=== PATIENT | female | born 1995 | race Caucasian/White ===

== ENCOUNTER 2023-03-14 15:37 | Emergency (ER) | payer OTHER, SELFPAY ==
[2023-03-14 15:45] VITALS: BP 125/84; PULSE 60; RESP 16; TEMP 36.8; O2SAT 100; BMI 23.6
--- NOTE | 2023-03-14 16:33 | ED_ITS ---
HPI - Abdominal Pain General Chief Complaint: Abdominal Pain Stated Complaint: recent DX of colon cancer, having pain Time Seen by Provider: 03/14/23 16:11 History of Present Illness HPI narrative: 27-year-old female with recently diagnosed rectal cancer, unknown stage presents for evaluation of lower abdominal pain and rectal pain. Patient states that she had a CT scan and laboratory work done 3 days ago for staging, she has a follow up appointment later this week with a surgeon. She is here today because she continues to have pain and pressure with defecation and she is not certain what to do for her symptoms anymore. She is been taking MiraLax but is still having significant pain with bowel movements. She is been taking Tylenol for pain with minimal relief. Pain is unchanged from prior, this is the same pain she was having when she had her CT scan. Patient is also here today because she is having really bad restless legs. She states he uses it only at night, however now it is constant and causing her significant distress. Related Data Previous Rx's Medication Instructions Recorded oxycodone 5 mg capsule 5 mg PO Q8H PRN pain #20 caps 03/14/23 ropinirole 0.25 mg tablet 0.25 mg PO BEDTIME #30 tabs 03/14/23 Allergies Allergy/AdvReac Type Severity Reaction Status Date / Time No Known Drug Allergies Allergy Verified 03/14/23 16:42 Review of Systems Review of Systems Narrative: CONSTITUTIONAL- Denies: fever, chills, fatigue HEENT- Denies: sore throat, nosebleed, vision changes RESPIRATORY- Denies: shortness of breath, cough, wheezing CARDIAC- Denies: chest pain, edema, orthopnea GI-reports: Lower abdominal pain, rectal pain, constipation Denies: nausea, vo miting, diarrhea - Denies: frequency, dysuria, hematuria, flank pain MSK- Denies: extremity pain, extremity swelling, joint pain, joint swelling SKIN- Denies: rash, itching, burn, swelling NEUROLOGICAL- Denies: headache, numbness, weakness, dizziness PSYCHIATRIC- Denies: anxiety, depression, suicidal ideation, homicidal ideation Exam Initial Vital Signs Initial Vital Signs: Vital Signs Temperature 98.3 F 03/14/23 15:45 Pulse Rate 60 03/14/23 15:45 Respiratory Rate 16 03/14/23 15:45 Blood Pressure 125/84 03/14/23 15:45 Pulse Oximetry 100 03/14/23 15:45 Oxygen Delivery Method Room Air 03/14/23 15:45 Const: Well-nourished, Well-developed, appears stated age Eyes: PERRL, EOMI, conjunctiva normal ENT: Atraumatic, dentition normal, mucous membranes moist Cardiac: regular rate, regular rhythm RESP: unlabored, clear bilaterally, no wheezing GI: Atraumatic, soft, nontender, nondistended, no rebound, no guarding Rectal: Web Operations Specialist present, nonthrombosed hemorrhoids present, unable to perform digital inspection of rectum due to pain and discomfort MSK: Atraumatic, full range of motion, pulses equal Skin: Warm, Dry, intact, no rashes Neuro: AO x3, CN II-XII grossly intact, moves all extremities Psych: affect normal, mood normal, not suicidal, not homicidal Course Course Course Narrative: Nontoxic appearing patient with abdominal pain and rectal pain with recent diagnosis of rectal cancer, uncertain stage. Reviewed recent labs and imaging, patient has rective lymph nodes and inflammatory changes in the colon consistent with cancer. Patient mostly expresses frustration that she has continued pain despite following recommendations for increased stool softeners and fluid intake. Patient declines additional labs and imaging at this time. Patient given pain medications and IV fluids. We will discharge on pain medications and very small dose of ropinirole for restless legs. Patient advised of the potentially constipating nature of opiates and recommended increasing MiraLax doses and adding senna with goal of at least 1 soft bowel movement daily. Patient is in the process of getting set up with an oncologist but does have scheduled follow up with the surgeon for planning her cancer treatment. ED return precautions discussed at bedside. Patient expressed understanding of the plan and is in agreement at this time. All questions answered at the time of discharge. Orders Ordered: Discontinued Medications Sodium Chloride (Normal Saline 0.9%) 500 mls @ 1,000 mls/hr IV BOLUS ONE Stop: 03/14/23 16:57 Last Infusion: 03/14/23 17:21 Dose: 0 mls/hr Documented By: Admin: 03/14/23 16:44 Dose: 1,000 mls/hr Documented By: OMI Sodium Chloride (Normal Saline 0.9%) 500 mls @ 1,000 mls/hr IV BOLUS ONE Stop: 03/14/23 17:30 Last Admin: 03/14/23 17:24 Dose: Not Given Documented By: SHIRAZ Ketorolac Tromethamine (Ketorolac 30 Mg/Ml Vial) 15 mg IV NOW ONE Stop: 03/14/23 16:29 Last Admin: 03/14/23 16:42 Dose: 15 mg Documented By: SB Morphine Sulfate (Morphine 4 Mg/Ml Inj) 4 mg IV NOW ONE Stop: 03/14/23 16:30 Last Admin: 03/14/23 16:42 Dose: 4 mg Documented By: SB Vital Signs Vital signs: Vital Signs - 8 hr 03/14/23 15:45 Temperature 98.3 F Pulse Rate 60 Respiratory Rate 16 Blood Pressure 125/84 Pulse Oximetry 100 Oxygen Delivery Method Room Air Discharge Plan Departure Patient Disposition: Home Clinical Impression: Anal or rectal pain, Constipation Instructions: Constipation, Anal Cancer Activity Restrictions/Additional Instructions: DRINK LOTS OF FLUIDS. YOU CAN INCREASE YOUR MIRALAX - GOAL IS ONE SOFT STOOL PER DAY. SENNA IS ANOTHER OVER THE COUNTER MEDICATION YOU CAN TAKE FOR CONSTIPATION. Prescriptions: New oxycodone 5 mg capsule 5 mg PO Q8H PRN (Reason: pain) Qty: 20 0RF ropinirole 0.25 mg tablet 0.25 mg PO BEDTIME Qty: 30 0RF Rx Instructions: administer 1-3 hours before bedtime. May increase dose by 0.25mg every 3 days until reduction of symptoms. Maximum dose 2mg Referrals: Miscellaneous,[facility] [Primary Care Provider] - Lorenza Walton MD [Physician] - Stand Alone Forms: Patient Portal/API
[2023-03-14] MEDS: MORPHINE 4 MG/ML INJ IV (16:42)
[2023-03-14] MEDS: KETOROLAC 30 MG/ML VIAL 15 MG IV (16:42)
[2023-03-14] MEDS: SODIUM CHLORIDE 0.9% 500 ML 1000 ML IV (16:44)
[2023-03-14 17:25] VITALS: BP 118/58; PULSE 50; RESP 16; O2SAT 100
== END 2023-03-14 17:31 | disposition home or self-care (01) ==
PROVIDERS: Emergency Provider Emergency Medicine
DX: K62.89 Other specified diseases of anus and rectum (principal); K59.00 Constipation, unspecified
CPT/HCPCS: 96361; 96374; 96375; 99283; 99284; J1885; J2270

== ENCOUNTER → 2023-11-05 09:41 | Outpatient (CLI) | payer OTHER, SELFPAY ==
--- NOTE | 2023-11-05 09:45 | DI.RAD.S_ITS ---
PROCEDURE: XR KNEE LT 3V INDICATIONS: Pain in left knee TECHNIQUE: 3 views of the knee were acquired. COMPARISON: None. FINDINGS: Bones: No fractures or dislocations. No suspicious bony lesions. Soft tissues: No joint effusion. No suspicious soft tissue calcifications. IMPRESSION: No acute osseous abnormality. If pain persists with conservative management, consider repeat x-ray in 10-14 days or cross-sectional imaging. Dictated by: Andrew Villarreal M.D. on 11/05/2023 at 13:14 Approved by: Andrew Villarreal M.D. on 11/05/2023 at 13:14
== END ==
PROVIDERS: PCP Registered Nurse; Referring Provider Registered Nurse; Visit Provider Registered Nurse
DX: M25.562 Pain in left knee (principal); G89.29 Other chronic pain
CPT/HCPCS: 73562

== ENCOUNTER 2023-12-05 00:14 | Emergency (ER) | payer OTHER, SELFPAY ==
[2023-12-05] VITALS (42 sets, daily range): BP systolic 77–124; BP diastolic 42–84; PULSE 47–82; RESP 10–22; TEMP 36.6; O2SAT 95–100; BMI 25.8
--- NOTE | 2023-12-05 00:51 | PC.NURSE ---
Called Poison control States because the risk of tylenol repeat tylenol level at 4 hr mindi. states narcan as needed for respiratory depression. 6hr to medical clearance from time of ingestion.
--- NOTE | 2023-12-05 00:56 | ED_ITS ---
HPI - Psych <Ursula Tucker DO - Last Filed: 12/06/23 03:55> General Chief Complaint: Psychiatric Symptoms Stated Complaint: took 20 10 mg oxy Time Seen by Provider: 12/05/23 00:40 Source: patient Mode of arrival: Ambulatory Limitations: no limitations History of Present Illness HPI Narrative: This is a 28-year-old female who has a history of depression, patient presents with ingestion of approximately 20 tablets of 10 mg oxycodone. She states this was at 11:00 p.m. this evening. Patient states they do not have a Pap or Tylenol in them. She denies coingestion. Patient states I do not want to tell you I took them because it will by me stay in a mental hospital. Patient does not give any other reason for having taken them. She states that things have been crazy life has been difficult. She does follow with provider for mental health care. She has been taking medications regularly. She states no prior hospitalizations, she denies any prior suicide attempts. Patient's does occasional tobacco, states she does not regularly drink alcohol denies any recreational drugs. She is accompanied by her significant other. Related Data Previous Rx's Medication Instructions Recorded oxycodone 5 mg capsule 5 mg PO Q8H PRN pain #20 caps 03/14/23 ropinirole 0.25 mg tablet 0.25 mg PO BEDTIME #30 tabs 03/14/23 Allergies Allergy/AdvReac Type Severity Reaction Status Date / Time No Known Drug Allergies Allergy Verified 03/14/23 16:42 Review of Systems <Ursula Tucker DO - Last Filed: 12/06/23 03:55> Review of Systems ROS Unobtainable: All systems reviewed & are unremarkable except as noted in HPI and below Patient History <Ursula Tucker DO - Last Filed: 12/06/23 03:55> Social History Smoking Status: Current some day smoker Smoking Status: Current some day smoker alcohol intake frequency: a few times a month Substance Use Type: does not use Exam <Ursula Tucker DO - Last Filed: 12/06/23 03:55> Narrative Exam Narrative: GENERAL: Alert and oriented x three, female, patient's appears tired but is conversant. HEENT: Head normocephalic, atraumatic, EOMI, no nystagmus, pupils reactive, face symmetric, moist mucous membranes NECK: Supple, full range of motion CARDIOVASCULAR: Regular rate and rhythm without murmurs, rubs or gallops. RESPIRATORY: Breath sounds equal bilaterally, no wheezes rales or rhonchi. ABDOMEN: Soft, nontender. Normoactive bowel sounds all 4 quadrants. No guarding or rebound, rigidity, no mass : No CVA tenderness EXTREMITIES: Normal range of motion, no clubbing or edema. Neurovascularly intact NEUROLOGICAL: Cranial nerves II through XII grossly intact. Moving all extremities. SKIN: Warm, dry, no petechiae, no rashes or lesions. Initial Vital Signs Initial Vital Signs: Vital Signs Temperature 98 F 12/05/23 00:29 Pulse Rate 82 12/05/23 00:29 Respiratory Rate 18 12/05/23 00:29 Blood Pressure 124/84 12/05/23 00:29 Pulse Oximetry 98 12/05/23 00:29 Oxygen Delivery Method Room Air 12/05/23 00:29 <Georges Berrios MD - Last Filed: 12/05/23 21:49> Initial Vital Signs Initial Vital Signs: Vital Signs Temperature 98 F 12/05/23 00:29 Pulse Rate 82 12/05/23 00:29 Respiratory Rate 18 12/05/23 00:29 Blood Pressure 124/84 12/05/23 00:29 Pulse Oximetry 98 12/05/23 00:29 Oxygen Delivery Method Room Air 12/05/23 00:29 Course <Ursula Tucker DO - Last Filed: 12/06/23 03:55> Orders Ordered: Discontinued Medications Sodium Chloride (Normal Saline 0.9%) 1,000 mls @ 1,000 mls/hr IV BOLUS ONE Stop: 12/05/23 01:39 Last Infusion: 12/05/23 01:55 Dose: Infused Documented By: Admin: 12/05/23 01:10 Dose: 1,000 mls/hr Documented By: Sodium Chloride (Normal Saline 0.9%) 1,000 mls @ 1,000 mls/hr IV BOLUS ONE Stop: 12/05/23 05:53 Last Infusion: 12/05/23 05:32 Dose: Infused Documented By: Admin: 12/05/23 04:55 Dose: 1,000 mls/hr Documented By: AB Methylprednisolone (Methylprednisolone 125 Mg/2 Ml Vial) 125 mg IV NOW ONE Stop: 12/05/23 03:45 Last Admin: 12/05/23 03:52 Dose: 125 mg Documented By: AB Naloxone HCl (Naloxone 0.4 Mg/Ml Vial) 0.2 mg IV Q2MIN PRN PRN Reason: Opiate Reversal Last Admin: 12/05/23 04:49 Dose: 0.2 mg Documented By: AB Vital Signs Vital signs: Vital Signs - 8 hr 12/05/23 14:00 12/05/23 14:30 Pulse Rate 52 L 51 L Respiratory Rate 19 16 Blood Pressure 94/55 L 93/53 L Pulse Oximetry 96 96 Oxygen Delivery Method Room Air Room Air <Georges Berrios MD - Last Filed: 12/05/23 21:49> Orders Ordered: Discontinued Medications Sodium Chloride (Normal Saline 0.9%) 1,000 mls @ 1,000 mls/hr IV BOLUS ONE Stop: 12/05/23 01:39 Last Infusion: 12/05/23 01:55 Dose: Infused Documented By: Admin: 12/05/23 01:10 Dose: 1,000 mls/hr Documented By: AB Sodium Chloride (Normal Saline 0.9%) 1,000 mls @ 1,000 mls/hr IV BOLUS ONE Stop: 12/05/23 05:53 Last Infusion: 12/05/23 05:32 Dose: Infused Documented By: Admin: 12/05/23 04:55 Dose: 1,000 mls/hr Documented By: AB Methylprednisolone (Methylprednisolone 125 Mg/2 Ml Vial) 125 mg IV NOW ONE Stop: 12/05/23 03:45 Last Admin: 12/05/23 03:52 Dose: 125 mg Documented By: AB Naloxone HCl (Naloxone 0.4 Mg/Ml Vial) 0.2 mg IV Q2MIN PRN PRN Reason: Opiate Reversal Last Admin: 12/05/23 04:49 Dose: 0.2 mg Documented By: AB Vital Signs Vital signs: Vital Signs - 8 hr 12/05/23 14:00 12/05/23 14:30 Pulse Rate 52 L 51 L Respiratory Rate 19 16 Blood Pressure 94/55 L 93/53 L Pulse Oximetry 96 96 Oxygen Delivery Method Room Air Room Air MDM - Psych <Ursula C Mank, DO - Last Filed: 12/06/23 03:55> Lab Data 12/05/23 01:00 12/05/23 01:00 Labs: Lab Results 12/05/23 12/05/23 12/05/23 Range/Units 01:00 01:08 02:24 WBC 5.4 (4.5-11.0) X10^3/uL RBC 4.44 (4.0-5.2) X10^6/uL Hgb 13.1 (12.0-16.0) g/dL Hct 38.6 (36-46) % MCV 86.9 (80-100) fL MCH 29.5 (26-34) PG MCHC 33.9 (30-36) % RDW 13.6 (11.6-14.8) % Plt Count 210 (150-400) X10^3/uL Neut % (Auto) 49.4 L (50-75) % Lymph % (Auto) 37.1 (25-40) % [place] % (Auto) 10.2 (3-14) % Eos % (Auto) 2.5 (2-4) % Baso % (Auto) 0.8 (0-2) % Neut # (Auto) 2700 (7072-6413) /uL Lymph # (Auto) 2000 (1304-4230) /uL [place] # (Auto) 500 (0-900) /uL Eos # (Auto) 100 (0-450) /uL Baso # (Auto) 0 (0-100) /uL Sodium 140 (137-145) mmol/L Potassium 3.7 (3.4-5.1) mmol/L Chloride 108 H (98-107) mmol/L Carbon Dioxide 28 (22-32) mmol/L BUN 16 (7-17) mg/dL Creatinine 0.86 (0.52-1.04) mg/dL Estimated GFR > 60 (>60) mL/min BUN/Creatinine Ratio 18.6 (6-22) Glucose 109 H (70-100) mg/dL Lactate 0.5 L (0.7-2.1) mmol/L Calcium 8.7 (8.4-10.2) mg/dL Total Bilirubin 0.4 (0.2-1.3) mg/dL Conjugated Bilirubin 0.0 (0.0-0.3) md/dL Unconjugated Bilirubin 0.0 (0.0-1.1) mg/dL AST 18 (14-36) IU/L ALT 13 (<35) IU/L Alkaline Phosphatase 57 (38-126) U/L Total Protein 6.8 (6.3-8.2) g/dL Albumin 4.2 (3.5-5.0) g/dL Globulin 2.6 (1.7-4.1) g/dL Albumin/Globulin Ratio 1.6 (1.0-2.8) Serum , Qual Negative (Negative) Salicylates < 1.0 (<20) mg/dL U Opiates 300ng/mL cut Negative (Negative) Ur Oxycodone Screen Positive H (Negative) Urine Methadone Screen Negative (Negative) Acetaminophen < 10 (10-30) ug/mL Ur Barbiturates Screen Negative (Negative) U Tricyclic Antidepress Negative (Negative) Ur Phencyclidine Scrn Negative (Negative) Ur Amphetamines Screen Negative (Negative) U Methamphetamines Scrn Negative (Negative) Ur MDMA Scrn (Ecstasy) Negative (Negative) U Benzodiazepines Scrn Negative (Negative) Urine Cocaine Screen Negative (Negative) U Marijuana (THC) Screen Negative (Negative) Urine pH Normal (Normal) Urine Specific [place] Normal (Normal) Ethyl Alcohol < 10 ( - 10) mg/dL Ur Creatinine Normal (Normal) SARS-CoV-2 (PCR) Negative (Negative) 12/05/23 Range/Units 07:00 WBC (4.5-11.0) X10^3/uL RBC (4.0-5.2) X10^6/uL Hgb (12.0-16.0) g/dL Hct (36-46) % MCV (80-100) fL MCH (26-34) PG MCHC (30-36) % RDW (11.6-14.8) % Plt Count (150-400) X10^3/uL Neut % (Auto) (50-75) % Lymph % (Auto) (25-40) % [place] % (Auto) (3-14) % Eos % (Auto) (2-4) % Baso % (Auto) (0-2) % Neut # (Auto) (1541-1311) /uL Lymph # (Auto) (6952-2692) /uL [place] # (Auto) (0-900) /uL Eos # (Auto) (0-450) /uL Baso # (Auto) (0-100) /uL Sodium (137-145) mmol/L Potassium (3.4-5.1) mmol/L Chloride (98-107) mmol/L Carbon Dioxide (22-32) mmol/L BUN (7-17) mg/dL Creatinine (0.52-1.04) mg/dL Estimated GFR (>60) mL/min BUN/Creatinine Ratio (6-22) Glucose (70-100) mg/dL Lactate (0.7-2.1) mmol/L Calcium (8.4-10.2) mg/dL Total Bilirubin (0.2-1.3) mg/dL Conjugated Bilirubin (0.0-0.3) md/dL Unconjugated Bilirubin (0.0-1.1) mg/dL AST (14-36) IU/L ALT (<35) IU/L Alkaline Phosphatase (38-126) U/L Total Protein (6.3-8.2) g/dL Albumin (3.5-5.0) g/dL Globulin (1.7-4.1) g/dL Albumin/Globulin Ratio (1.0-2.8) Serum , Qual (Negative) Salicylates (<20) mg/dL U Opiates 300ng/mL cut (Negative) Ur Oxycodone Screen (Negative) Urine Methadone Screen (Negative) Acetaminophen < 10 (10-30) ug/mL Ur Barbiturates Screen (Negative) U Tricyclic Antidepress (Negative) Ur Phencyclidine Scrn (Negative) Ur Amphetamines Screen (Negative) U Methamphetamines Scrn (Negative) Ur MDMA Scrn (Ecstasy) (Negative) U Benzodiazepines Scrn (Negative) Urine Cocaine Screen (Negative) U Marijuana (THC) Screen (Negative) Urine pH (Normal) Urine Specific [place] (Normal) Ethyl Alcohol ( - 10) mg/dL Ur Creatinine (Normal) SARS-CoV-2 (PCR) (Negative) ECG Data Attestation: I personally reviewed and interpreted this ECG as follows: Interpretation: Sinus bradycardia rate of 56 MD 124 QRS is 74 QTC [address] No acute ST elevation depression. MDM Narrative Medical decision making narrative: 28-year-old female with intentional narcotic overdose. Patient denies other ingestions. Patient is little bit sleepy but vitals are overall appropriate, she was placed on end-tidal CO2. Narcan ordered PRN. Labs white count of 5.4 hemoglobin of 13 platelets of 210, sodium of 140 potassium 3.7 chloride of 108 CO2 of 28 BUN 16 creatinine 0.86, glucose of 109 lactate less than 0.5 LFTs are negative. Salicylates, Tylenol and ETOH are negative. EKG shows sinus bradycardia patient has prior visits has been 50-60 heart rate. Urine drug screen is positive for oxycodone otherwise negative. Poison control recommends Narcan PRN, watch for hypotension, bradycardia, hypoxia and myosis. 6 hours to metabolize. Patient had bradycardia but this is somewhat baseline, blood pressure has dropped over time, patient started to have a rise in her end-tidal CO2 50 O2 was 90-91% she was given 0.2 mg of Narcan. She was also given some additional fluids. We will continue to monitor patient requires repeated doses of Narcan will require a drip and admission. Patient signed out to Dr. Berrios while pending medically clearance but patient has had increased mentation, D has improved with ambulation to the bathroom. Repeat 10 no was ordered. Yash, 12/05/23, @0700. Sign-out from Dr. Tucker. 28-year-old female took 20 tablets of oxycodone proximally 11:00 p.m. last night, has been here proximally since midnight last night, non accidental ingestion, had some transient increase in tidal, received 0.2 mg Narcan approximately 0500 this morning, itchiness treated with steroid, no hives reported, initial Tylenol level another screening labs negative, repeat Tylenol pending. Maximum effect expected around 0 600 has passed, patient ambulatory in the department per nursing. Repeat Tylenol level pending, if negative then anticipate UNDER CUTTER/DCR consult for disposition plan. Assumed care Repeat Tylenol negative, medically clear for UNDER CUTTER/DCR consult. 1300, discussed with DCR, no criteria for involuntary hold, patient seems engaged in treatment, seems motivated to follow up, has counseling with Carmen Allen ([phone]), contracted for safety, home with significant other, advised to try to reach Ms. Allen Silvia, return precautions discussed <Georges Berrios MD - Last Filed: 12/05/23 21:49> Medical Records Attestation: I reviewed the patient's medical records. Lab Data Attestation: I reviewed the patient's lab results. Labs: Lab Results 12/05/23 12/05/23 12/05/23 Range/Units 01:00 01:08 02:24 WBC 5.4 (4.5-11.0) X10^3/uL RBC 4.44 (4.0-5.2) X10^6/uL Hgb 13.1 (12.0-16.0) g/dL Hct 38.6 (36-46) % MCV 86.9 (80-100) fL MCH 29.5 (26-34) PG MCHC 33.9 (30-36) % RDW 13.6 (11.6-14.8) % Plt Count 210 (150-400) X10^3/uL Neut % (Auto) 49.4 L (50-75) % Lymph % (Auto) 37.1 (25-40) % [place] % (Auto) 10.2 (3-14) % Eos % (Auto) 2.5 (2-4) % Baso % (Auto) 0.8 (0-2) % Neut # (Auto) 2700 (0583-4743) /uL Lymph # (Auto) 2000 (8456-9477) /uL [place] # (Auto) 500 (0-900) /uL Eos # (Auto) 100 (0-450) /uL Baso # (Auto) 0 (0-100) /uL Sodium 140 (137-145) mmol/L Potassium 3.7 (3.4-5.1) mmol/L Chloride 108 H (98-107) mmol/L Carbon Dioxide 28 (22-32) mmol/L BUN 16 (7-17) mg/dL Creatinine 0.86 (0.52-1.04) mg/dL Estimated GFR > 60 (>60) mL/min BUN/Creatinine Ratio 18.6 (6-22) Glucose 109 H (70-100) mg/dL Lactate 0.5 L (0.7-2.1) mmol/L Calcium 8.7 (8.4-10.2) mg/dL Total Bilirubin 0.4 (0.2-1.3) mg/dL Conjugated Bilirubin 0.0 (0.0-0.3) md/dL Unconjugated Bilirubin 0.0 (0.0-1.1) mg/dL AST 18 (14-36) IU/L ALT 13 (<35) IU/L Alkaline Phosphatase 57 (38-126) U/L Total Protein 6.8 (6.3-8.2) g/dL Albumin 4.2 (3.5-5.0) g/dL Globulin 2.6 (1.7-4.1) g/dL Albumin/Globulin Ratio 1.6 (1.0-2.8) Serum , Qual Negative (Negative) Salicylates < 1.0 (<20) mg/dL U Opiates 300ng/mL cut Negative (Negative) Ur Oxycodone Screen Positive H (Negative) Urine Methadone Screen Negative (Negative) Acetaminophen < 10 (10-30) ug/mL Ur Barbiturates Screen Negative (Negative) U Tricyclic Antidepress Negative (Negative) Ur Phencyclidine Scrn Negative (Negative) Ur Amphetamines Screen Negative (Negative) U Methamphetamines Scrn Negative (Negative) Ur MDMA Scrn (Ecstasy) Negative (Negative) U Benzodiazepines Scrn Negative (Negative) Urine Cocaine Screen Negative (Negative) U Marijuana (THC) Screen Negative (Negative) Urine pH Normal (Normal) Urine Specific [place] Normal (Normal) Ethyl Alcohol < 10 ( - 10) mg/dL Ur Creatinine Normal (Normal) SARS-CoV-2 (PCR) Negative (Negative) 12/05/23 Range/Units 07:00 WBC (4.5-11.0) X10^3/uL RBC (4.0-5.2) X10^6/uL Hgb (12.0-16.0) g/dL Hct (36-46) % MCV (80-100) fL MCH (26-34) PG MCHC (30-36) % RDW (11.6-14.8) % Plt Count (150-400) X10^3/uL Neut % (Auto) (50-75) % Lymph % (Auto) (25-40) % [place] % (Auto) (3-14) % Eos % (Auto) (2-4) % Baso % (Auto) (0-2) % Neut # (Auto) (5706-7253) /uL Lymph # (Auto) (5219-7367) /uL [place] # (Auto) (0-900) /uL Eos # (Auto) (0-450) /uL Baso # (Auto) (0-100) /uL Sodium (137-145) mmol/L Potassium (3.4-5.1) mmol/L Chloride (98-107) mmol/L Carbon Dioxide (22-32) mmol/L BUN (7-17) mg/dL Creatinine (0.52-1.04) mg/dL Estimated GFR (>60) mL/min BUN/Creatinine Ratio (6-22) Glucose (70-100) mg/dL Lactate (0.7-2.1) mmol/L Calcium (8.4-10.2) mg/dL Total Bilirubin (0.2-1.3) mg/dL Conjugated Bilirubin (0.0-0.3) md/dL Unconjugated Bilirubin (0.0-1.1) mg/dL AST (14-36) IU/L ALT (<35) IU/L Alkaline Phosphatase (38-126) U/L Total Protein (6.3-8.2) g/dL Albumin (3.5-5.0) g/dL Globulin (1.7-4.1) g/dL Albumin/Globulin Ratio (1.0-2.8) Serum , Qual (Negative) Salicylates (<20) mg/dL U Opiates 300ng/mL cut (Negative) Ur Oxycodone Screen (Negative) Urine Methadone Screen (Negative) Acetaminophen < 10 (10-30) ug/mL Ur Barbiturates Screen (Negative) U Tricyclic Antidepress (Negative) Ur Phencyclidine Scrn (Negative) Ur Amphetamines Screen (Negative) U Methamphetamines Scrn (Negative) Ur MDMA Scrn (Ecstasy) (Negative) U Benzodiazepines Scrn (Negative) Urine Cocaine Screen (Negative) U Marijuana (THC) Screen (Negative) Urine pH (Normal) Urine Specific [place] (Normal) Ethyl Alcohol ( - 10) mg/dL Ur Creatinine (Normal) SARS-CoV-2 (PCR) (Negative) MDM Narrative Medical decision making narrative: 28-year-old female with intentional narcotic overdose. Patient denies other ingestions. Patient is little bit sleepy but vitals are overall appropriate, she was placed on end-tidal CO2. Narcan ordered PRN. Labs white count of 5.4 hemoglobin of 13 platelets of 210, sodium of 140 potassium 3.7 chloride of 108 CO2 of 28 BUN 16 creatinine 0.86, glucose of 109 lactate less than 0.5 LFTs are negative. Salicylates, Tylenol and ETOH are negative. EKG shows sinus bradycardia patient has prior visits has been 50-60 heart rate. Urine drug screen is positive for oxycodone otherwise negative. Poison control recommends Narcan PRN, watch for hypotension, bradycardia, hypoxia and myosis. 6 hours to metabolize. Patient had bradycardia but this is somewhat baseline, blood pressure has dropped over time, patient started to have a rise in her end-tidal CO2 50 O2 was 90-91% she was given 0.2 mg of Narcan. She was also given some additional fluids. We will continue to monitor patient requires repeated doses of Narcan will require a drip and admission. Yash, 12/05/23, @0700. Sign-out from Dr. Tucker. 28-year-old female took 20 tablets of oxycodone proximally 11:00 p.m. last night, has been here proximally since midnight last night, non accidental ingestion, had some transient increase in tidal, received 0.2 mg Narcan approximately 0500 this morning, itchiness treated with steroid, no hives reported, initial Tylenol level another screening labs negative, repeat Tylenol pending. Maximum effect expected around 0 600 has passed, patient ambulatory in the department per nursing. Repeat Tylenol level pending, if negative then anticipate UNDER CUTTER/DCR consult for disposition plan. Assumed care Repeat Tylenol negative, medically clear for UNDER CUTTER/DCR consult. 1300, discussed with DCR, no criteria for involuntary hold, patient seems engaged in treatment, seems motivated to follow up, has counseling with Carmen Allen ([phone]), contracted for safety, home with significant other, advised to try to reach Tiffany Wednesday, return precautions discussed Discharge Plan Departure Patient Disposition: Home Clinical Impression: Intentional overdose Activity Restrictions/Additional Instructions: Oxycodone overdose, observe for a number of hours in the emergency department, eventually medically clear, then had consultation with mental health provider, who felt there was no criteria for involuntary placement, in fact felt that you were engaged and motivated and outpatient plan, seeing Isma Allen, , and advised that you call her office on Wednesday after tomorrow for closer follow up. Contracted for safety, home with significant other. Return to this/nearest emergency department for any change worsening symptoms before your mental health follow up hopefully on Wednesday. Prescriptions: No Action oxycodone 5 mg capsule 5 mg PO Q8H PRN (Reason: pain) Qty: 20 0RF ropinirole 0.25 mg tablet 0.25 mg PO BEDTIME Qty: 30 0RF Rx Instructions: administer 1-3 hours before bedtime. May increase dose by 0.25mg every 3 days until reduction of symptoms. Maximum dose 2mg Referrals: Irina He ARNP [Primary Care Provider] - Stand Alone Forms: Patient Portal/API
[2023-12-05] MEDS: SODIUM CHLORIDE 0.9% 1,000 ML 1000 ML IV ×2 (01:10→04:55)
[2023-12-05 01:21] LABS: Add Manual Diff / Slide Review NO; Basophils Absolute Auto 0 /uL (0-100); Basophils Percent Auto 0.8 % (0-2); Eosinophils Absolute Auto 100 /uL (0-450); Eosinophils Percent Auto 2.5 % (2-4); Hematocrit 38.6 % (36-46); Hemoglobin 13.1 g/dL (12.0-16.0); Lymphocytes Absolute Auto 2000 /uL (1100-4500); Lymphocytes Percent Auto 37.1 % (25-40); Mean Corpuscular HGB Conc 33.9 % (30-36); Mean Corpuscular Hemoglobin 29.5 PG (26-34); Mean Corpuscular Volume 86.9 fL (80-100); Monocytes Absolute Auto 500 /uL (0-900); Monocytes Percent Auto 10.2 % (3-14); Neutrophils Absolute Auto 2700 /uL (1500-7000); Neutrophils Percent Auto 49.4 % (50-75); Platelet Count 210 X10^3/uL (150-400); Red Blood Cell Count 4.44 X10^6/uL (4.0-5.2); Red Cell Distribution Width 13.6 % (11.6-14.8); White Blood Cell Count 5.4 X10^3/uL (4.5-11.0)
[2023-12-05 01:29] LABS: Pregnancy Test Serum,Qual Negative (Negative)
[2023-12-05 01:31] LABS: Acetaminophen < 10 ug/mL (10-30); Alanine Aminotransferase 13 IU/L (<35); Albumin 4.2 g/dL (3.5-5.0); Albumin Globulin Ratio 1.6 (1.0-2.8); Alkaline Phosphatase 57 U/L (38-126); Aspartate Aminotransferase 18 IU/L (14-36); BUN Creatinine Ratio 18.6 (6-22); Bilirubin Total 0.4 mg/dL (0.2-1.3); Blood Urea Nitrogen 16 mg/dL (7-17); Calcium 8.7 mg/dL (8.4-10.2); Carbon Dioxide 28 mmol/L (22-32); Chloride 108 mmol/L (98-107); Estimated Glomerular Filt Rate > 60 mL/min (>60); Ethanol (ETOH) < 10 mg/dL; Globulin 2.6 g/dL (1.7-4.1); Glucose 109 mg/dL (70-100); HEMOLYSIS < 15 (0-50); Lactate (Lactic Acid) 0.5 mmol/L (0.7-2.1); Potassium 3.7 mmol/L (3.4-5.1); Salicylate < 1.0 mg/dL (<20); Sodium 140 mmol/L (137-145); Total Protein 6.8 g/dL (6.3-8.2)
[2023-12-05 01:37] LABS: COVID19 -Nasal RAPID Negative (Negative)
--- NOTE | 2023-12-05 01:47 | PC.NURSE ---
Unable to complete assessments fully due to pt being drowzy.
[2023-12-05 02:34] LABS: Ur Creatinine Normal (Normal); Ur Specific Gravity Normal (Normal); Urine Amphetamines Negative (Negative); Urine Barbiturates Negative (Negative); Urine Benzodiazepines Negative (Negative); Urine Cocaine Negative (Negative); Urine MDMA Negative (Negative); Urine Methadone Negative (Negative); Urine Methamphetamines Negative (Negative); Urine Opiates Negative (Negative); Urine Oxycodone Positive (Negative); Urine Phencyclidine Negative (Negative); Urine THC Negative (Negative); Urine Tricyclic Antidepressant Negative (Negative); Urine pH Normal (Normal)
[2023-12-05] MEDS: methylPREDNISolone 125 MG/2 ML VIAL IV (03:52)
[2023-12-05] MEDS: NALOXONE 0.4 MG/ML VIAL 0.2 MG IV (04:49)
[2023-12-05 07:28] LABS: Acetaminophen < 10 ug/mL (10-30)
--- NOTE | 2023-12-05 09:38 | PC.NURSE ---
Faxed DCR form to [facility] @[phone]. Called [facility] @[phone] and spoke with Viola who will give the information to DCR.
--- NOTE | 2023-12-05 11:40 | PC.NURSE ---
[facility] arrived at ER to interview patient; AMY Whitfield attended meeting. Partner Chong notified by phone of arrival.
--- NOTE | 2023-12-05 11:49 | PC.NURSE ---
DCR, RN and patient's partner in room.
--- NOTE | 2023-12-05 12:22 | PC.NURSE ---
Patient and partner (Chong) both denied lunch.
--- NOTE | 2023-12-05 14:05 | CM.SWNOTE ---
ED CLINICAL PROGRAM MANAGER Assessment Note: CLINICAL PROGRAM MANAGER - Polysomnograph Tech Assessment CLINICAL PROGRAM MANAGER/Polysomnograph Tech Assessment Time Spent with Patient Start date 12/05/23 Visit Start Time 13:25 End date 12/05/23 Visit End Time 13:40 Total time Care Management spent on 15 minutes patient visit-in minutes Mental Health Screening Include Onset, Duration, Intensity Presenting Problem Patient presents to the ED after an intentional overdose on 20-10mg oxycodone. Precipitating Event(s) Patient was diagnosed with rectal cancer in March 2023 and has been obtaining treatment at [facility]. Pt has been under a lot stress, things have been crazy, life has been difficult. Patient Strengths Patient has established care with therapist, NICOLE Ogden and obtains medication management services with [facility]. Pt works with JOSE DANIEL Jacques as her primary care provider. Pt has good support in partner, Chong , who is at bedside now. Current Behavioral Health Provider(s) NICOLE Ogden (ph# Include Facility, Provider, Ph. # [phone]) - Pt gave consent for this CLINICAL PROGRAM MANAGER to contact her therapist for coordination of care. Psych. Hx Mental Health and Chemical Pt has past hx of ADHD, Dependency anxiety, and depression. Pt reports mother had depression and grandmother had bipolar disorder. Pt explains there is a lot of substance use disorders in her family. Family Hx of Behavioral Abuse Not reported. Psychiatric Hospitalizations (date(s)/ None reported. location) Psychosocial information & Support Pt is a 28yo female, resident [facility] with her partner. Pt reports good support in partner, Chong, and is working with medical team. School/Work Pt works with [employer]. Pt did not disclose what she does for employment. Legal Concerns Legal Matters - Outstanding Issues None reported. Mental Status Orientation (Person/Place/Time) Alert and oriented x4 Stated Mood It's going. Affect (Congruent with Mood?) Flat, fatigued, congruent with mood. Thought Content - Specify/Describe Pt denies any hallucinations Obsessions, Delusions, Hallucinations or delusions, pt explains she has really bad nightmares but reports no hallucinations. Thought Processes (Gfpeahb-Wwxuprtj-Vmwr Logical, coherent. Wlakhvps-Lvgnmgli-Gggdyrjclg- Ualothgwapfczk-Mhgvait-Ilrjckfdajtc- Thought Blocking) Speech (Sfducs-Vvmi-Nmcthwe-Rapid-Soft- Soft, slow. Loud-Pressured) Motor (Kfzdyw-Ptkewswrb-Ubsp-Other) Normal Insight (Mhnh-Uerw-Beed/Limited) Good/limited Judgement (Juhq-Wgpr-Xtxy/Limited) Good/limited Impulse Control (Adequate-Impaired) Adequate Memory (Fnvdvmenl-Eltpmu-Pcygwm, Intact for assessment, not Impaired-Intact) formally assessed. Concentration (Intact-Impaired) Intact Attention (Intact-Impaired) Intact Behavior (Appropriate-Inappropriate) Appropriate Additional Comment Pt is calm and cooperative during assessment. Pt seemed a bit guarded during assessment at times but this could be attributed to pt's past history of psychiatric services. With education and rapport building, pt continued with assessment with this clinician. Risk Assessment Suicidal Ideation (Plan) No Homicidal Ideation (Plan) No Comment Pt denies any suicidal ideation at this time. Pt is able to contract for safety and will follow up with [facility] as soon as available, has a scheduled appointment on , 12/08. Intervention Intervention CLINICAL PROGRAM MANAGER meets with patient. Patient discusses why she presented to the ED and confirmed meeting with Designated Crisis Responder. Per DCR, pt did not meet criteria for detainment and is able to contract for safety. Pt confirmed past medical history and who she is working with for mental health assistance (Carmen Allen, [facility] and Marcela for medication management). Pt denied continued suicidal ideation and is able to contract for safety. Pt expressed eagerness to return home and follow up with mental health provider. Pt gave consent for this CLINICAL PROGRAM MANAGER to contact her LM to discuss plan of care, to advocate for sooner follow up appointment if available. At this time, it is the opinion of this CLINICAL PROGRAM MANAGER that patient would benefit from outpatient mental health appointments, continued support from her partner, and medication management. ED CLINICAL PROGRAM MANAGER encouraged pt to advocate for a PRN panic medication to assist with episodes of extreme anxiety as pt reports. Pt denied this CLINICAL PROGRAM MANAGER's offer for a [facility] follow up crisis call tomorrow. Pt stated she was given crisis contact information from DCR and will utilize if necessary in the future. CLINICAL PROGRAM MANAGER informs ED provider and AMY Whitfield/Rosa that pt would like to return home with outpatient MH follow up when medically clear. ED Provider, Dr. Berrios, verbalized understanding and agreement. Plan RA Plan Pt to discharge home after yovani for safety and with follow up plan with MH Provider. ED CLINICAL PROGRAM MANAGER to follow up with MH Provider to advocate for sooner appointment time if available. MARYSOL Duran
--- NOTE | 2023-12-05 14:39 | CM.SWNOTE ---
ED CLIMATOLOGIST Note: ED CLIMATOLOGIST called pt's MH provider, Carmen Allen, [facility] (ph# ) and spoke with Dr. Roberson, who oversees the private practice pt's LMHC is contracted with. Per Dr. Roberson, pt's provider has reached out to pt via email and scheduled a follow up appointment on Wednesday, 12/06 at 4:00pm. ED CLIMATOLOGIST confirmed with pt of follow up appt and pt stated she will confirm with provider via email. Plan: Pt to dc with partner to home; follow up with MH provider at above date and time. MARYSOL Duran
== END 2023-12-05 14:40 | disposition home or self-care (01) ==
PROVIDERS: Emergency Medicine; Emergency Provider Emergency Medicine; PCP Registered Nurse
DX: T40.2X2A Poisoning by other opioids, intentional self-harm, initial encounter (principal); Z11.52 Encounter for screening for COVID-19
CPT/HCPCS: 36415; 80053; 80076; 80305; 80320; 80329; 83605; 84703; 85025; 87635; 93005; 96374; 96375; 99284; 99285; G0480; J2310; J2919